=== PATIENT | female | born 1980 | race Two or more races ===

== ENCOUNTER 2023-09-27 17:37 | Emergency (ER) | payer SELFPAY ==
[2023-09-27 17:42] VITALS: BP 133/91; PULSE 60; RESP 18; TEMP 98; BMI 40.7
[2023-09-27] MEDS: KETOROLAC TROMETHAMINE 15 MG/ML VIAL IVPUSH ONE (18:36)
[2023-09-27] MEDS ORDERED: KETOROLAC TROMETHAMINE 15 MG/ML VIAL ONE (18:38)
[2023-09-27 18:56] LABS: BASO % 0.5 % (0-2.0); EOS % 0.9 % (0-4.5); HEMATOCRIT 36.5 % (32.4-45.2); HEMOGLOBIN 12.4 GM/dL (10.7-15.3); LYMPH % 14.5 % (8-40); MCH 28.8 pg (25.7-33.7); MCHC 34.1 g/dl (32.0-36.0); MEAN CELL VOLUME 84.5 fl (80-96); MEAN PLT VOLUME 9.5 fl (7.5-11.1); MONO % 6.8 % (3.8-10.2); NEUT % 77.3 % (42.8-82.8); PLATELET COUNT 198 10^3/uL (134-434); RBC 4.32 M/mm3 (3.60-5.2); RDW 15.2 % (11.6-15.6); WHITE BLOOD COUNT 11.1 K/mm3 (4.0-10.0)
[2023-09-27 19:44] LABS: POTASSIUM 4.2 mmol/L (3.5-5.1)
[2023-09-27 19:49] LABS: ALBUMIN 3.2 g/dl (3.4-5.0); BLOOD UREA NITROGEN 13.4 mg/dL (7-18)
[2023-09-27 19:51] LABS: CREATININE 0.7 mg/dL (0.55-1.3)
[2023-09-27 19:52] LABS: BILIRUBIN,TOTAL 0.3 mg/dL (0.2-1); TOT PROT 7.1 g/dl (6.4-8.2)
== END 2023-09-27 19:19 | disposition home or self-care (01) ==
LOC: JER 17:37 → JERFT 17:37
PROC: 3E033NZ Introduction of Analgesics, Hypnotics, Sedatives into Peripheral Vein, Percutaneous Approach (ICD-10-PCS; principal; 2023-09-27)
DX: O20.9 Hemorrhage in early pregnancy, unspecified (principal); O26.891 Other specified pregnancy related conditions, first trimester; R10.2 Pelvic and perineal pain; Z3A.01 Less than 8 weeks gestation of pregnancy
CPT/HCPCS: 36415; 80053; 84702; 85025; 86850; 86900; 86901; 99284-25